=== PATIENT | male | born 1985 | race African-American/Black ===

== ENCOUNTER 2017-04-13 21:09 | Emergency (ER) | payer MEDICAID ==
[~2017-04-13] VITALS: Ht 188 cm; Wt 87.0 kg
[2017-04-14] MEDS ORDERED: IBUPROFEN 600MG TABLET PO ONE (01:15)
[2017-04-14 01:17] VITALS: BP 120/78
== END 2017-04-14 02:19 | disposition home or self-care (01) ==
LOC: ER 22:48
DX: M25.511 Pain in right shoulder (principal); F12.10 Cannabis abuse, uncomplicated; V43.52XA Car driver injured in collision with other type car in traffic accident, initial encounter; Y93.89 Activity, other specified; Y92.89 Other specified places as the place of occurrence of the external cause; Y99.8 Other external cause status
CPT/HCPCS: 73030; 99284; A4565